=== PATIENT | male | born 1980 | race Caucasian/White ===

== ENCOUNTER 2017-02-22 12:56 | Emergency (ER) | payer SELFPAY ==
[~2017-02-22] VITALS: Ht 181.6 cm; Wt 81.8 kg
[2017-02-22 12:59] VITALS: BP 165/98; PULSE 91; RESP 14; TEMP 98.4; O2SAT 99
[2017-02-22] MEDS ORDERED: KETOROLAC TROMETHAMINE 60 MG/2 ML (IM) VIAL IM ONE (14:15)
--- NOTE | 2017-02-22 14:30 | PD ---
HPI Chief Complaint: Musculoskeletal Complaint Time Seen by Provider: 13:26 Travel History International Travel<30 days: No Contact w/Intl Traveler<30days: No Traveled to known affect area: No History of Present Illness HPI 36-year-old male here with left ankle pain. Patient reports that he was pushing a car when he felt a pop and immediate pain in his left posterior ankle. Onset 2 hours prior. He fell to the ground. No head injury or loss of conscious. He reports difficulty bearing weight on the extremity after the injury. He denies paresthesia or weakness of the extremity. He has pain when he attempts to dorsiflex and plantarflex the foot. No other injuries. PFSH Past Medical History Medical History: Denies Significant Hx Tetanus Vaccination: < 5 Years Past Surgical History Surgical History: No Previous Surgery Social History Alcohol Use: No Tobacco Use: Yes (vap) Substance Use: No Allergies-Medications (Allergen,Severity, Reaction): Coded Allergies: No Known Allergies (Unverified , 02/22/17) Reported Meds & Prescriptions Reported Meds & Active Scripts Active No Active Prescriptions or Reported Medications Review of Systems Except as stated in HPI: all other systems reviewed are Neg Physical Exam Narrative GENERAL: Alert male. Well-appearing. SKIN: Warm and dry. HEAD: Normocephalic. Atraumatic EYES: No injection or drainage. NECK: Supple, trachea midline. CARDIOVASCULAR: Regular rate and rhythm without murmurs, gallops, or rubs. RESPIRATORY: Breath sounds equal bilaterally. No accessory muscle use. GASTROINTESTINAL: Abdomen soft, non-tender, nondistended. MUSCULOSKELETAL: No cyanosis, or edema. Left ankle: Tenderness over the Achilles tendon. The ankle is stable. No deformity. 2+ dorsal pedis pulse. Fine sensation intact. Dorsiflex intact. Minimal plantar flexion. Kaur test: Elicits only mild plantar flexion. Data Data Last Documented VS Vital Signs Date Time Temp Pulse Resp B/P (MAP) Pulse Ox O2 Delivery O2 Flow Rate FiO2 02/22/17 12:59 98.4 91 14 165/98 (120) 99 Orders Orders Ketorolac Inj (Toradol Inj) (02/22/17 14:15) Ankle, Complete ([id number]) (02/22/17 ) Splinting (02/22/17 ) MDM Medical Decision Making Medical Screen Exam Complete: Yes Emergency Medical Condition: Yes Differential Diagnosis Achilles tendon rupture, Achilles tendon tear, ankle fracture, ankle sprain Narrative Course 36-year-old male with left posterior ankle pain. The extremity is neurovascularly intact. Kaur test elicits only minimal plantar flexion. I suspect Achilles tendon injury. This was discussed with patient. Patient is uninsured he will be given a mandatory outpatient orthopedic referral. He was splinted in a posterior short leg slight plantarflexion. He was instructed to be nonweightbearing. Rest ice and elevate the extremity. Follow-up with orthopedic this week. Patient verbalizes understanding and agrees to plan Diagnosis Primary Impression: Injury of Achilles tendon Qualified Codes: S86.002A - Unspecified injury of left Achilles tendon, initial encounter Referrals: Orthopedist Additional Instructions: Keep the splint in place until follow-up with orthopedics. Rest ice and elevate the extremity. Use crutches for ambulating. Take the pain medication as directed. The hospital will be contacting you to set up an appointment with an digital campaign specialist. If you do not hear from them in 48 hours please call the hospital. Scripts Ibuprofen (Ibuprofen) 800 Mg Tab 800 MG PO Q6HR Y for PAIN, #40 TAB 0 Refills Prov: Kat Melendez 02/22/17 Disposition: 01 DISCHARGE HOME Condition: Stable Kat Melendez Feb 22, 2017 14:30
--- NOTE | 2017-02-22 14:49 | RADRPT ---
EXAM DATE/TIME: 02/22/2017 14:36 [facility] COMPARISON: No previous studies available for comparison. INDICATIONS : Left ankle pain after hearing a pop in his left ankle while pushing a car. MEDICAL HISTORY : None. SURGICAL HISTORY : None. ENCOUNTER: Initial ACUITY: 1 day PAIN SCORE: 7/10 LOCATION: Left lateral ankle. FINDINGS: There is edema in the expected location of the Achilles tendon. There is no bony fracture. CONCLUSION: Edema expected location Achilles tendon. Correlation suggested. Servando Yang MD FACR on February 22, 2017 at 14:46 Board Certified Radiologist. This report was verified electronically.
[2017-02-22] MEDS ORDERED: IBUP1TAB7 PO (15:02)
[2017-02-22] MEDS ORDERED: TRAM50 PO (15:05)
== END 2017-02-22 16:10 | disposition home or self-care (01) ==
LOC: NEPK 12:56
DX: S86.002A Unspecified injury of left Achilles tendon, initial encounter (principal); X50.9XXA Other and unspecified overexertion or strenuous movements or postures, initial encounter; Y93.89 Activity, other specified
CPT/HCPCS: 29515; 73610; 96372; 99285; E0113; J1885

== ENCOUNTER 2017-03-29 09:43 | Day surgery (SDC) | payer OTHER ==
[~2017-03-29] VITALS: Ht 180.3 cm; Wt 129.0 kg
[2017-03-29] MEDS ORDERED: INSULIN HUMAN REGULAR 1,000 UNITS/10 ML VIAL SQ PRN (10:30)
[2017-03-29] MEDS ORDERED: METOPROLOL TARTRATE 25 MG TAB PO PRN (10:30)
[2017-03-29] MEDS ORDERED: POVIDONE IODINE 5% (ANTISEPSIS KIT) 4 APPLICATIONS EACH NARE PRN (10:30)
[2017-03-29] MEDS ORDERED: LACTATED RINGER'S 1000 ML IV PRN (10:30)
[2017-03-29] MEDS ORDERED: CHLORHEXIDINE GLUCONATE 4% SOLN 120 ML BTL TOPICAL SCH (10:30)
[2017-03-29] MEDS ORDERED: ceFAZolin 2 GM PREMIX 50 ML IV SCH (10:30)
[2017-03-29] MEDS ORDERED: SODIUM CHLORID 0.9% 500 ML IV PRN (10:30)
[2017-03-29] MEDS ORDERED: CHLORHEXIDINE GLUCONATE 2 % 1 PACK (2 CLOTHS) TOPICAL PRN (10:30)
[2017-03-29 10:49] LABS: BASOPHIL % 0.4 % (0.0-2.0); EOSINOPHIL # 0.1 TH/MM3 (0-0.4); EOSINOPHIL % 1.4 % (0.0-4.0); HEMATOCRIT 43.7 % (39.0-51.0); HEMOGLOBIN 15.3 GM/DL (13.0-17.0); LYMPHOCYTE # 1.9 TH/MM3 (1.0-4.8); MEAN CELL VOLUME 87.2 FL (80.0-100.0); MEAN CORPUSCULAR HEMOGLOBIN 30.5 PG (27.0-34.0); MEAN PLATELET VOLUME 7.8 FL (7.0-11.0); MONO % 9.5 % (0.0-8.0); MONOCYTE # 0.5 TH/MM3 (0-0.9); NEUT % 53.7 % (16.0-70.0); PLATELET COUNT 243 TH/MM3 (150-450); RED BLOOD COUNT 5.02 MIL/MM3 (4.50-5.90); RED CELL DISTRIBUTION WIDTH 13.1 % (11.6-17.2); WHITE BLOOD COUNT 5.5 TH/MM3 (4.0-11.0)
[2017-03-29 11:03] LABS: BICARBONATE 25.4 MEQ/L (21.0-32.0); CALCIUM 8.7 MG/DL (8.5-10.1); CREATININE 1.11 MG/DL (0.60-1.30)
[2017-03-29] MEDS ORDERED: GLYCOPYRROLATE 1 MG/5 ML SYRINGE IV PUSH ONE (12:00)
[2017-03-29] MEDS ORDERED: LACTATED RINGER'S 1000 ML INJ 1,000 ML IV ONE (12:00)
[2017-03-29] MEDS ORDERED: PROPOFOL 200 MG/20 ML AMP IV ONE (12:00)
[2017-03-29] MEDS ORDERED: ROCURONIUM INJ 50 MG/5 ML SYRINGE IV PUSH ONE (12:00)
[2017-03-29] MEDS ORDERED: LIDOCAINE HCL 1% PF 5 ML SYRINGE OTHER ONE (12:00)
[2017-03-29] MEDS ORDERED: NEOSTIGMINE 5 MG/5 ML SYRINGE IV PUSH ONE (12:00)
[2017-03-29] MEDS ORDERED: ONDANSETRON HCL 4 MG/2 ML VIAL IV ONE (12:00)
[2017-03-29] MEDS ORDERED: ESMOLOL HCL 100 MG/10 ML VIAL IV ONE (12:00)
[2017-03-29] MEDS ORDERED: GENTAMICIN SULFATE 80 MG/2 ML VIAL ONE (12:37)
[2017-03-29] MEDS ORDERED: ACETAMINOPHEN 1000 MG/100 ML 100 ML IV ONE (13:10)
[2017-03-29] MEDS ORDERED: PERC5TAB12 PO (13:36)
[2017-03-29] MEDS: VANCOMYCIN 1000 MG/NS 250 ML (for <70 kg) IV SCH ×4 (13:39→14:31)
[2017-03-29] MEDS ORDERED: KETOROLAC TROMETHAMINE 30 MG/ML (IVP) VIAL IVP ONE (13:45)
[2017-03-29] MEDS ORDERED: MORPHINE SULFATE 4 MG/ML INJ IV PUSH PRN (13:45)
[2017-03-29] MEDS ORDERED: oxyCODONE/ACETAMINOPHEN 5 MG/325 MG TAB PO PRN ×2 (13:45)
[2017-03-29] MEDS ORDERED: ONDANSETRON HCL 4 MG/2 ML VIAL IV PUSH PRN (13:45)
[2017-03-29] MEDS ORDERED: SODIUM CHLORIDE 0.9% FLUSH 10 ML FLUSH IV FLUSH PRN (13:45)
--- NOTE | 2017-03-29 15:43 | PD.OP ---
cc: Steven Mortensen Jr., MD Operative Report Date of Surgery: Mar 29, 2017 Preoperative Diagnosis: left achilles tendon rupture Postoperative Diagnosis: Same Procedure: Left Achilles tendon primary repair Anesthesia: Gen. Surgeon: Steven Mortensen Diamond Broker(s): Hospital staff Resident Surgeon: None Operation and Findings: PROCEDURE: After all potential complications, risks, as well as anticipated benefits of the above-named procedure were discussed at length with the patient , informed consent was obtained. The operative extremity was then confirmed with the patient, the operative surgeon, anesthesia, and nursing staff. The patient was then transferred to the operative table and placed in the prone position. All bony prominences were well padded at this time. A nonsterile tourniquet was placed on the left lower extremity. The lower extremity was sterilely prepped and draped in the usual sterile fashion. The extremity was elevated and exsanguinated using an Esmarch and the tourniquet was inflated to 250 mmHg. After all bony and soft tissue [place] were identified, a 6 cm longitudinal incision was made paralateral to the Achilles tendon from its insertion proximal. Careful dissection was then taken down to the level of the peritenon while avoiding any injury to the sural nerve. Once this was reached, full thickness flaps were performed. Next, retractor was placed. A longitudinal incision was then made in the peritenon and opened up exposing the tendon. There was noted to be complete rupture of the tendon approximately 4 cm proximal to the insertion point. The tendon was debrided at this time of hematoma as well as frayed tendon. Next #5 fiberwire was selected and a Krackow stitch was then performed. Two sutures were then used proximally and one distally and tied individually. The tendon came together very well and with a tight connection. Next, a #2-0 Vicryl suture was then used to close the peritenon over the Achilles tendon. The wound was copiously irrigated. A #2-0 Vicryl sutures were then used to close the skin and subcutaneous fashion followed skin closure with glue mesh. sterile dressing was applied as well as a short length well padded splint in 30 deg plantar position. The patient was transferred back Postanesthesia Care Unit. The patient tolerated the procedure well. There were no complications. Steven Mortensen Jr., MD Mar 29, 2017 15:43
[2017-03-29] MEDS ORDERED: DO NOT ADM ANY ANTICOAGULANT DRUGS PRN (15:45)
[2017-03-29] MEDS ORDERED: *HYDROmorphone PF 1 MG VIAL PERIprocedural Use ONLY ONE (15:52)
[2017-03-29] MEDS ORDERED: *diphenhydrAMINE HCL 50 MG/ML VIAL PERIprocedural Use ONLY ONE (15:57)
[2017-03-29] MEDS ORDERED: *MEPERIDINE 25 MG INJ VIAL PERIprocedural Use ONLY ONE (16:08)
[2017-03-29] MEDS ORDERED: MIDAZOLAM HCL 2 MG/2 ML VIAL ONE (16:29)
[2017-03-29] MEDS ORDERED: MORPHINE SULFATE 4 MG/ML INJ ONE (16:30)
[2017-03-29] MEDS ORDERED: MORPHINE SULFATE 8 MG/ML INJ IV PUSH PRN (17:15)
[2017-03-29 18:00] VITALS: BP 134/62; PULSE 98; RESP 16; TEMP 97.6; O2SAT 98
--- NOTE | 2017-03-29 19:23 | EKG ---
Date Performed: 03/29/2017 Time Performed: 10:06:56 PTAGE: 36 years EKG: Sinus rhythm NORMAL ECG NO PREVIOUS TRACING DOCTOR: Lyric Delgado Interpretating Date/Time 03/29/2017 19:22:27
[2017-03-29] MEDS ORDERED: SODIUM CHLORIDE 0.9% FLUSH 10 ML FLUSH IV FLUSH SCH (21:00)
== END 2017-03-29 20:45 | disposition home or self-care (01) ==
LOC: HSDC 09:43 → N07A 19:11 → HSDC 20:45
PROVIDERS: ATTEND Orthopaedic Surgery
DX: S86.012A Strain of left Achilles tendon, initial encounter (principal); I10 Essential (primary) hypertension; X50.9XXA Other and unspecified overexertion or strenuous movements or postures, initial encounter; Y93.89 Activity, other specified; Z01.810 Encounter for preprocedural cardiovascular examination; Z01.818 Encounter for other preprocedural examination
CPT/HCPCS: 01472; 27650; 80048; 85025; 86850; 86900; 86901; 93005; J0131; J0690; J1170; J1200; J1580; J1885; J2175; J2250; J2270; J3010; J3370; J7050; J7120; J2405; J2710